=== PATIENT | female | born 1950 | race Caucasian/White ===

== ENCOUNTER → 2016-04-30 | Outpatient (CLI) | payer MEDICARE, OTHER ==
[~2016-04-30] VITALS: Ht 170.2 cm; Wt 90.9 kg
[~2016-04-30] MED LIST: AMBIEN 10MG10 MG PO; ATARAX 25MG25 MG/TAB PO; B-121000 MCG PO; BENICAR40 MG PO; BYSTOLIC20 MG PO; CALCIUM 600600 M2 PO; CHANTIX 1MG1 MG PO; COZAAR100 MG PO; CYMBALTA 30MG30 MG PO; FLEXERIL 1010 MG/TAB PO; K-DUR 10 MEQ T10 MEQ PO; MAG-OX 400400 MG/TAB PO; NATURE'S BLEN5000 IU PO; NORVASC 10MG10 MG PO; PROBIOTIC FORMU1 CAP PO; PROZAC 20MG20 MG PO; ROXICODONE15 MG PO; SENNA-LAX8.6 MG PO; STOOL SOFTENER100 M2 PO; SYNTHROID 0.10.15 MG PO; VOLTAREN GEL 1%1 TU TP
== END ==
LOC: COL.RAD 10:45
DX: S32.018A Other fracture of first lumbar vertebra, initial encounter for closed fracture (principal)

== ENCOUNTER 2016-05-11 10:28 | Outpatient (CLI) | payer MEDICARE, OTHER ==
[2016-05-11] VITALS (9 sets, daily range): BP systolic 97–167; BP diastolic 36–86; PULSE 51–55; TEMP 97.8
[~2016-05-11] VITALS: Ht 170.3 cm; Wt 90.9 kg
[~2016-05-11 10:28] MED LIST changes: -AMBIEN 10MG10 MG PO; -ATARAX 25MG25 MG/TAB PO; -B-121000 MCG PO; -BYSTOLIC20 MG PO; -CALCIUM 600600 M2 PO; -CHANTIX 1MG1 MG PO; -COZAAR100 MG PO; -CYMBALTA 30MG30 MG PO; -FLEXERIL 1010 MG/TAB PO; -K-DUR 10 MEQ T10 MEQ PO; -MAG-OX 400400 MG/TAB PO; -NATURE'S BLEN5000 IU PO; -PROBIOTIC FORMU1 CAP PO; -ROXICODONE15 MG PO; -SENNA-LAX8.6 MG PO; -STOOL SOFTENER100 M2 PO; -VOLTAREN GEL 1%1 TU TP
[2016-05-11] MEDS ORDERED: VOLTAREN GEL 1%1 TU TP (11:09)
[2016-05-11] MEDS ORDERED: BYSTOLIC20 MG PO (11:09)
[2016-05-11] MEDS ORDERED: ATARAX 25MG25 MG/TAB PO (11:10)
[2016-05-11] MEDS ORDERED: COZAAR100 MG PO (11:11)
[2016-05-11] MEDS ORDERED: NATURE'S BLEN5000 IU PO (11:11)
[2016-05-11] MEDS ORDERED: ROXICODONE15 MG PO (11:12)
[2016-05-11] MEDS ORDERED: AMBIEN 10MG10 MG PO (11:12)
[2016-05-11] MEDS ORDERED: FLEXERIL 1010 MG/TAB PO (11:13)
[2016-05-11] MEDS ORDERED: CHANTIX 1MG1 MG PO (11:13)
[2016-05-11] MEDS ORDERED: CYMBALTA 30MG30 MG PO (11:14)
[2016-05-11] MEDS ORDERED: CALCIUM 600600 M2 PO (11:21)
[2016-05-11] MEDS ORDERED: B-121000 MCG PO (11:22)
[2016-05-11] MEDS ORDERED: MAG-OX 400400 MG/TAB PO (11:22)
[2016-05-11] MEDS ORDERED: K-DUR 10 MEQ T10 MEQ PO (11:24)
[2016-05-11] MEDS ORDERED: SENNA-LAX8.6 MG PO (11:25)
[2016-05-11] MEDS ORDERED: STOOL SOFTENER100 M2 PO (11:25)
[2016-05-11] MEDS ORDERED: PROBIOTIC FORMU1 CAP PO (11:25)
== END 2016-05-11 15:20 | disposition home or self-care (01) ==
LOC: EUO 10:28 → COL.RAD 10:30 → EUO 15:20
DX: M48.54XG Collapsed vertebra, not elsewhere classified, thoracic region, subsequent encounter for fracture with delayed healing (principal); M54.5 Low back pain
CPT/HCPCS: C1713; J2250; J3010; J7120

== ENCOUNTER → 2016-06-04 | Outpatient (CLI) | payer MEDICARE, OTHER ==
[~2016-06-04] MED LIST changes: +AMBIEN 10MG10 MG PO; +ATARAX 25MG25 MG/TAB PO; +B-121000 MCG PO; +BYSTOLIC20 MG PO; +CALCIUM 600600 M2 PO; +CHANTIX 1MG1 MG PO; +COZAAR100 MG PO; +CYMBALTA 30MG30 MG PO; +FLEXERIL 1010 MG/TAB PO; +K-DUR 10 MEQ T10 MEQ PO; +MAG-OX 400400 MG/TAB PO; +NATURE'S BLEN5000 IU PO; +PROBIOTIC FORMU1 CAP PO; +ROXICODONE15 MG PO; +SENNA-LAX8.6 MG PO; +STOOL SOFTENER100 M2 PO; +VOLTAREN GEL 1%1 TU TP
== END ==
LOC: BHSO 15:24
DX: F06.32 Mood disorder due to known physiological condition with major depressive-like episode (principal)

== ENCOUNTER → 2016-07-01 | Outpatient (CLI) | payer MEDICARE, OTHER | LOC: BHSO 15:16 | DX: F06.32 Mood disorder due to known physiological condition with major depressive-like episode (principal) ==

== ENCOUNTER → 2016-09-08 | Outpatient (CLI) | payer MEDICARE, OTHER | LOC: BHSO 13:56 | DX: F41.1 Generalized anxiety disorder (principal) ==

== ENCOUNTER → 2016-12-06 | Outpatient (CLI) | payer MEDICARE, OTHER | LOC: BHSO 14:19 | DX: F06.32 Mood disorder due to known physiological condition with major depressive-like episode (principal) ==

== ENCOUNTER → 2017-03-07 | Outpatient (CLI) | payer MEDICARE, OTHER | LOC: BHSO 14:06 | DX: F06.32 Mood disorder due to known physiological condition with major depressive-like episode (principal) ==

== ENCOUNTER → 2017-07-04 | Outpatient (CLI) | payer MEDICARE, OTHER | LOC: BHSO 14:04 | DX: F06.32 Mood disorder due to known physiological condition with major depressive-like episode (principal) | CPT/HCPCS: G0463 ==

== ENCOUNTER → 2018-01-16 | Outpatient (CLI) | payer MEDICARE, OTHER | LOC: BHSO 09:19 | DX: F06.32 Mood disorder due to known physiological condition with major depressive-like episode (principal) | CPT/HCPCS: G0463 ==

== ENCOUNTER → 2018-04-21 | Outpatient (CLI) | payer MEDICARE, OTHER | LOC: BHSO 13:02 | DX: G89.29 Other chronic pain (principal); F06.32 Mood disorder due to known physiological condition with major depressive-like episode | CPT/HCPCS: G0463 ==

== ENCOUNTER → 2018-07-20 | Outpatient (CLI) | payer MEDICARE, OTHER | LOC: BHSO 14:13 | DX: F06.32 Mood disorder due to known physiological condition with major depressive-like episode (principal) | CPT/HCPCS: G0463 ==

== ENCOUNTER → 2018-11-29 | Outpatient (CLI) | payer MEDICARE, OTHER | LOC: BHSO 14:28 | DX: F06.32 Mood disorder due to known physiological condition with major depressive-like episode (principal) | CPT/HCPCS: G0463 ==

== ENCOUNTER → 2019-03-06 | Outpatient (CLI) | payer MEDICARE, OTHER | LOC: BHSO 14:46 | DX: F06.32 Mood disorder due to known physiological condition with major depressive-like episode (principal) | CPT/HCPCS: G0463 ==

== ENCOUNTER → 2019-06-01 | Outpatient (CLI) | payer MEDICARE, OTHER | LOC: BHSO 14:46 | DX: F06.32 Mood disorder due to known physiological condition with major depressive-like episode (principal) | CPT/HCPCS: G0463 ==

== ENCOUNTER → 2019-12-21 | Outpatient (CLI) | payer MEDICARE, OTHER | LOC: BHSO 13:53 | DX: F06.32 Mood disorder due to known physiological condition with major depressive-like episode (principal) | CPT/HCPCS: G0463 ==

== ENCOUNTER → 2021-08-25 | Outpatient (CLI) | payer MEDICARE, OTHER | LOC: MHCPAIN 13:47 | DX: M47.896 Other spondylosis, lumbar region (principal); M53.3 Sacrococcygeal disorders, not elsewhere classified; M54.50 Low back pain, unspecified; G89.29 Other chronic pain | CPT/HCPCS: G0463 ==